=== PATIENT | female | born 2005 | race Caucasian/White ===

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

== ENCOUNTER → 2023-04-13 13:03 | Outpatient (CLI) | payer OTHER, SELFPAY ==
--- NOTE | 2023-04-13 13:04 | US_ITS ---
PROCEDURE: US TRANSVAGINAL CLINICAL INDICATION: pelvic and ovarian pain COMPARISON: No exams were available for comparison FINDINGS: UTERUS: 7cm x 3cmx 3cm with a combined endometrial thickness of 7.1mm. The uterus is anteverted. LEFT OVARY: 5cmxx2.3cm with a volume of .The left ovary has a polycystic appearance with atypical ring of pearls. RIGHT OVARY: 5cmx 5xnu3uv with a volume of 16.8ml. The right ovary is polycystic with atypical renal pearls. Both ovaries are seen and appear normal. Polycystic appearance. Doppler flow to both ovaries are seen. There is no fluid in the cul-de-sac. IMPRESSION: 1. Anteverted uterus with a normal appearing endometrium. 2. Both ovaries have a polycystic appearance with the typical ring of pearls. 3. There is no fluid in the cul-de-sac. Dictated by: Mata Koch MD 04/15/2023 12:29 Mata Koch MD in OV 04/15/2023 12:29
== END ==
LOC: RAD 13:04
PROVIDERS: PCP Family Medicine; Visit Provider Obstetrics & Gynecology
DX: N94.89 Other specified conditions associated with female genital organs and menstrual cycle (principal); R10.2 Pelvic and perineal pain
CPT/HCPCS: 76830

== ENCOUNTER 2024-02-03 19:39 | Emergency (ER) | payer OTHER, SELFPAY ==
--- NOTE | 2024-02-03 19:47 | ED_ITS ---
<Statement entered by Brett Smith MD - 02/03/24 23:39> I was consulted by the VEL, and we discussed the complexity of the problems being addressed. I approved the treatment and management plan for this patient's care in the emergency department, thus performing a substantive portion of the medical decision making. Brett Smith MD Patient has a past medical history of hidradenitis suppurativa was prescribed doxycycline for which she is having a mild allergic reaction. No criteria for anaphylaxis met. Patient was given steroids and Benadryl in the emergency department and observed with no progressive symptoms and is appropriate for outpatient management at this time and had antibiotics converted to Bactrim. Given history of hidradenitis suppurativa I&D was considered but will be deferred. Discharge Plan Disposition Patient Disposition: Home, Self-Care Condition: Good Prescriptions Prescriptions: New prednisone 50 mg tablet 50 mg PO DAILY 3 Days Qty: 3 0RF sulfamethoxazole-trimethoprim [Bactrim DS] 800-160 mg tablet 1 tab PO BID Qty: 20 0RF ondansetron 4 mg tablet,disintegrating 4 mg PO Q4H PRN (Reason: nausea and vomiting) Qty: 10 0RF Rx Instructions: give 1st dose 30min before emetogenic chemo No Action norgestimate-ethinyl estradiol [Sprintec (28)] 0.25-35 mg-mcg tablet 1 tab PO DAILY Qty: 28 11RF Referrals Follow up/Referrals: Donald Alanis MD [Primary Care Provider] - See instructions Activity Restrictions/Add. Instructions Additional Instructions/Restrictions: Continue steroids till they are gone. Continue antibiotics till they are gone. Follow-up with your tiltrotor crew chief as scheduled. Return to the ER for any worsening shortness of breath, swelling, or difficulty breathing Clinical Impressions Clinical Impression: Allergic drug reaction Qualifiers: Encounter type: initial encounter Qualified Code(s): T78.40XA - Allergy, unspecified, initial encounter Discharge ED Provider: Brett Smith General Adult HPI General Chief complaint: Allergic Reaction Stated complaint: took medication and she is having a reaction Time Seen by Provider: 02/03/24 19:47 History of Present Illness HPI narrative: Patient presents for evaluation of nausea itching and swelling. Patient has a history of hidradenitis suppurativa and was started on doxycycline by her tiltrotor crew chief. Patient took 1 dose took a shower and when she got out of the shower she immediately had nausea then vomiting. Patient also reports that her eyes are itching and they feel like they are swelling. She denies chest pain shortness of breath fever chills hemoptysis hematochezia melena hematemesis. Related Data Previous Rx's Medication Instructions Recorded norgestimate 0.25 mg-ethinyl 1 tab PO DAILY #28 tabs 04/10/23 estradiol 35 mcg tablet (Sprintec (28)) ondansetron 4 mg disintegrating 4 mg PO Q4H PRN nausea and 02/03/24 tablet vomiting #10 tabs prednisone 50 mg tablet 50 mg PO DAILY 3 days #3 tabs 02/03/24 sulfamethoxazole 800 1 tab PO BID #20 tabs 02/03/24 mg-trimethoprim 160 mg tablet (Bactrim DS) Allergies Allergy/AdvReac Type Severity Reaction Status Date / Time No Known Allergies Allergy Verified 04/10/23 14:44 [facility] Disclaimer: The information contained in this section may have been updated after the patient was seen, as this information can be updated by other users. Surgical History (Updated 04/10/23 @ 14:45 by HERMAN Espinal) No history of previous surgery Social History (Updated 04/10/23 @ 14:48 by HERMAN Espinal) Smoking Status: Unknown if ever smoked alcohol intake: never substance use type: denies use current occupational status: employed Travel in the last 8 weeks: None household members: family housing: house current occupation: [employer], [employer] ROS Obtained: Yes Systems reviewed as appropriate & no additional complaints except as documented Physical Exam General General appearance: alert and in no apparent distress Head Head exam: atraumatic and normal inspection Eye Eye exam: Present normal appearance, PERRL, EOMI and other (I do not appreciate any facial edema) ENT ENT exam: Present normal exam, normal oropharynx, mucous membranes moist and other (I do not appreciate any perioral edema, or any oropharyngeal, mucositis.) Neck Neck exam: Present normal inspection and trachea midline Chest Chest inspection: Present normal inspection and symmetric chest wall rise Respiratory Respiratory exam: Present normal lung sounds bilaterally and stridor; Absent respiratory distress, wheezes or accessory muscle use Cardiovascular Cardiovascular exam: Present regular rate, normal rhythm, normal heart sounds, +S1 and +S2 Abdominal Exam Abdominal exam: Present soft; Absent tenderness Extremities Exam Extremities exam: Present normal inspection and full ROM Neurological Exam Neurological exam: Present alert and oriented X3; Absent CN II-XII intact Psychiatric Psychiatric exam: Present normal affect and normal mood Skin Skin exam: Present warm, dry and normal color Lymphatic Lymphatic Findings: no adenopathy Medical Decision Making Medical Records Medical records reviewed: Yes I reviewed the patient's medical records. Edwar Inquiry Pt receiving controlled substance: No Vital Signs: 02/03/24 19:49 02/03/24 20:01 Temperature 97.9 F Temperature Source Oral Pulse Rate 92 H Pulse Rate [Right Brachial] 94 H Respiratory Rate 16 20 Blood Pressure 118/81 Blood Pressure [Right Arm] 131/84 Blood Pressure Mean 90 Blood Pressure Mean [Right Arm] 99 Blood Pressure Source [Right Arm] Automatic Cuff Blood Pressure Position [Right Arm] Sitting 02 Sat by Pulse Oximetry 99 100 Oxygen Delivery Method Room Air Room Air Orders (Tests/Meds): ED MEDICATIONS Discontinued Medications Generic Name Dose Route Start Last Admin Trade Name Nadege PRN Reason Stop Dose Admin Diphenhydramine HCl 50 mg 02/03/24 19:51 02/03/24 20:10 Diphenhydramine 50mg/Ml Vial IV 02/03/24 19:52 Not Given ONCE ONE Diphenhydramine HCl 50 mg 02/03/24 20:06 02/03/24 20:08 Diphenhydramine 50mg Capsule PO 02/03/24 20:07 50 mg ONCE ONE Administration Lactated Ringer's 1,000 mls @ 999 mls/hr 02/03/24 19:51 02/03/24 20:10 Lactated Ringer's 1000 Ml Bag IV 02/03/24 20:51 Not Given .Q1H1M ONE Ondansetron HCl 4 mg 02/03/24 19:51 02/03/24 20:07 Ondansetron 4mg Odt SL 02/03/24 19:52 4 mg ONCE ONE Administration Prednisone 50 mg 02/03/24 20:13 02/03/24 20:39 Prednisone 20mg Tab 0.5 mg/kg (50 mg) 02/03/24 20:14 50 mg PO Administration ONCE ONE Medical Decision Narrative: In summary patient is a 18-year-old female who presents to the emergency department for evaluation of nausea, subjective orbital itching and edema. Patient is hemodynamically stable upon arrival, febrile. Physical exam is unremarkable for any wheezing airway compromise visible edema or cutaneous signs of drug reaction. Patient does have an area of hidradenitis suppurativa in the right inguinal/inner thigh of the right lower extremity. Differential diagnosis includes allergic drug reaction versus GI upset due to drug versus anaphylaxis. Initial interventions include Benadryl Zofran prednisone. Upon repeat evaluation reports improved itching has had no progression of symptoms including continue clear breath sounds. Given this appropriate for discharge with prescription for prednisone and a new prescription for Bactrim. Patient to follow-up with tiltrotor crew chief scheduled return to ER for any worsening signs of shortness of breath swelling itching difficulty breathing. Critical Care Critical Care Time Critical Care Time: No
[2024-02-03 19:49] VITALS: BP 131/84; PULSE 94; RESP 16; TEMP 36.6; O2SAT 99; BMI 36.6
[2024-02-03 20:01] VITALS: BP 118/81; PULSE 92; RESP 20; O2SAT 100
[2024-02-03] MEDS: ONDANSETRON 4MG ODT 4 MG SL (20:07)
[2024-02-03] MEDS: diphenhydrAMINE 50MG CAPSULE 50 MG PO (20:08)
[2024-02-03] MEDS: predniSONE 20MG TAB 50 MG PO (20:39)
[2024-02-03 21:11] VITALS: BP 108/69; PULSE 79; RESP 15; TEMP 36.9; O2SAT 96
== END 2024-02-03 21:13 | disposition home or self-care (01) ==
PROVIDERS: Emergency Provider Emergency Medicine; PCP Family Medicine
DX: R11.2 Nausea with vomiting, unspecified (principal); T78.40XA Allergy, unspecified, initial encounter
CPT/HCPCS: 96361; 96374; 99284

== ENCOUNTER 2025-08-30 21:03 | Emergency (ER) | payer OTHER, SELFPAY ==
--- NOTE | 2025-08-30 21:16 | HMH.EDGENADL ---
Discharge Plan Disposition Patient Disposition: Home, Self-Care Condition: Good Prescriptions Prescriptions: No Action norgestimate-ethinyl estradiol [Sprintec (28)] 0.25-35 mg-mcg tablet 1 tab PO DAILY Qty: 28 11RF prednisone 50 mg tablet 50 mg PO DAILY 3 Days Qty: 3 0RF sulfamethoxazole-trimethoprim [Bactrim DS] 800-160 mg tablet 1 tab PO BID Qty: 20 0RF ondansetron 4 mg tablet,disintegrating 4 mg PO Q4H PRN (Reason: nausea and vomiting) Qty: 10 0RF Rx Instructions: give 1st dose 30min before emetogenic chemo Referrals Follow up/Referrals: Donald Alanis MD [Primary Care Provider, Medical] - See instructions Activity Restrictions/Add. Instructions Additional Instructions/Restrictions: Please follow-up labs with [facility]. 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 Patient was stuck on the left index finger with a straight stick needle that had been used to attempt to access the patient's pain but had not been successful in getting blood yet. This happened just prior to check-in, and the area has already been washed thoroughly with soap and water. the patient that she was trying to stick is relatively low risk with negative HIV and hepatitis testing as recent as 1 year ago. Che otherwise has no concerns or complaints reported at this time. Related Data Previous Rx's ?Medication ?Instructions ?Recorded norgestimate 0.25 mg-ethinyl 1 tab PO DAILY #28 tabs 04/10/23 estradiol 0.035 mg tablet (Sprintec (28)) ondansetron 4 mg disintegrating 4 mg PO Q4H PRN nausea and 02/03/24 tablet vomiting #10 tabs prednisone 50 mg tablet 50 mg PO DAILY 3 days #3 tabs 02/03/24 sulfamethoxazole 800 1 tab PO BID #20 tabs 02/03/24 mg-trimethoprim 160 mg tablet (Bactrim DS) Allergies Allergy/AdvReac Type Severity Reaction Status Date / Time No Known Allergies Allergy Verified 04/10/23 14:44 [facility] Disclaimer: The information contained in this section may have been updated after the patient was seen, as this information can be updated by other users. Surgical History No history of previous surgery Social History Smoking Status: Unknown if ever smoked alcohol intake: never substance use type: denies use current occupational status: employed Travel in the last 8 weeks?: None household members: family housing: house current occupation: [employer] Have you lived/traveled outside in past 30 days?: No Contact w/someone who lives/traveled outside [place] past 30 days?: No Exposure to someone with infectious disease in past 14 days?: No Do you have a fever (greater than 100.4 F or 38 C)?: No Have you tested positive for COVID-19?: No Exposed to someone with COVID-19 in past 14 days?: No Do you have a sore throat?: No Do you have a cough?: No Do you have any weakness?: No Do you have any diarrhea?: No Are you experiencing any unusual bleeding?: No Do you have any muscle aches/pain?: No Do you have any abdominal pain?: No Are you experiencing loss of taste or smell?: No Other Medical History Have you received the Flu Vaccine for this season: No Have you received the Pneumonia Vaccine: No ROS Obtained: Yes All systems reviewed & no additional complaints except as documented Physical Exam General General appearance: alert and in no apparent distress Head Head exam: atraumatic and normocephalic Eye Eye exam: Present normal appearance, PERRL and EOMI ENT ENT exam: Present normal exam, normal oropharynx, mucous membranes moist and normal external ear exam Neck Neck exam: Present normal inspection, full ROM and trachea midline; Absent tenderness Chest Chest inspection: Present normal inspection and symmetric chest wall rise; Absent tenderness Respiratory Respiratory exam: Present normal lung sounds bilaterally; Absent respiratory distress, wheezes, stridor or accessory muscle use Cardiovascular Cardiovascular exam: Present regular rate and normal rhythm Abdominal Exam Abdominal exam: Present soft; Absent distention, tenderness or guarding Extremities Exam Extremities exam: Present full ROM, normal capillary refill and other (Pinpoint needle prick to the left index finger); Absent tenderness or edema Back Exam Back exam: Present normal inspection and full ROM; Absent tenderness Neurological Exam Neurological exam: Present alert, oriented X3, CN II-XII intact and normal gait; Absent motor sensory deficit Psychiatric Psychiatric exam: Present normal affect and normal mood Skin Skin exam: Present warm and dry Medical Decision Making Medical Records Medical records reviewed: Yes I reviewed the patient's medical records. Screening: Per USPSTF and CDC recommendations, given the prevalence of disease in our region, it is our hospital?s policy to screen for HIV and viral Hepatitis for all patients aged 18 and over and those with ongoing risk factors. Edwar Inquiry Pt receiving controlled substance: No Vital Signs: 08/30/25 21:17 08/30/25 22:17 Temperature 98.3 F 98.3 F Temperature Source Oral Oral Pulse Rate 105 H Respiratory Rate 18 16 Blood Pressure 128/78 02 Sat by Pulse Oximetry 98 Oxygen Delivery Method Room Air Room Air Lab Data Lab results reviewed: Yes I reviewed the patient's lab results. Lab Results 08/30/25 21:50: PT 10.8, INR 0.97, APTT 28.1, Sodium 141, Potassium 3.9, Chloride 106, Carbon Dioxide 24, Anion Gap 14.9, BUN 13, Creatinine 0.80, Estimated Creat Clear 178, Estimated GFR 91, Est GFR ( Amer) 110, Glucose 91, Calcium 9.4, Total Bilirubin 0.6, AST 54 H, ALT 33, Alkaline Phosphatase 88, Total Protein 8.4 H, Albumin 5.4 H, Globulin 3.0, Albumin/Globulin Ratio 1.8, Urine Opiates Screen Negative, Urine Methadone Screen Negative, Ur Barbituates Screen Negative, Ur Phencyclidine Scrn Negative, Ur Amphetamines Screen Negative, U Benzodiazepines Scrn Negative, Urine Cocaine Screen Negative, U Marijuana (THC) Screen Negative, HCV Ab JAIDA w/Rflx PCR Qn Negative, HIV Ag/Ab Combo Qual Negative 08/30/25 21:50 Orders (Tests/Meds): ORDERS Category Date Time Status Activated Partial Thrombo Time Stat Lab 08/30/25 21:50 Completed Complete Blood Count Auto Diff Stat Lab 08/30/25 21:50 Received Comprehensive Metabolic Panel Stat Lab 08/30/25 21:50 Completed HIV Combo Stat Lab 08/30/25 21:50 Completed Hepatitis B Surf Ab Quant Stat Lab 08/30/25 21:50 Received Hepatitis B surface antigen screen [HBsAg Screen] Stat Lab 08/30/25 21:50 Received Hepatitis C Ab Qual. W/ RFX Stat Lab 08/30/25 21:50 Completed Prothrombin Time INR Stat Lab 08/30/25 21:50 Completed UDS [Drug Screen,Urine] Stat Lab 08/30/25 21:50 Completed Medical Decision Narrative: In summary, this patient is a 19-year-old female presenting to the Emergency Department for evaluation of needlestick injury. Differential diagnoses considered include but are not limited to blood-borne pathogen exposure, needlestick. Ruling out the most morbid conditions drove assessment. Per our hospital employee protocols, initial labs for the patient were obtained including CBC, CMP, coags, hepatitis B testing, HCV testing, HIV testing. Patient's labs were largely pending at her time of requested discharge. Her CMP was reassuring with exception of very mildly elevated AST. Coags are normal. CBC is not yet resulted. Her hepatitis and HIV testing was pending at time of discharge. The other involved alliance party also had labs pending, I did follow-up in his preliminary HIV, hepatitis C testing were both negative. Che and I discussed HIV prophylaxis, but she would like to defer this at this time given patient's negative HIV status and low risk stick. Given this, I feel that she is appropriate for discharge with instructions to continue follow-up with employee health. Strict return precautions given Critical Care Critical Care Time Critical Care Time: No
[2025-08-30 21:17] VITALS: RESP 18; TEMP 36.8; O2SAT 98; BMI 37.0
--- OUTSIDE RECORDS SUMMARY | 2025-08-30 21:32 | XMS_ITS | Data Portability ---
Author Organization [facility],, Main Office Address [address] [place] [address] Assessment No assessment recorded. Plan of Treatment Reminders Order Date Submit Date Provider Last Modified By Organization Details Last Modified Time Details Appointments None recorded. Lab urinalysis, dipstick 2024 025 [facility] Main Office, [address], [place], [address], 5 15:19:27 test, urine 2024 025 [facility] Main Office, [address], [place], [address], 5 15:19:27 Referral None recorded. Procedures None recorded. Surgeries None recorded. Imaging None recorded. Medication Orders drospirenon e 3 mg-ethinyl estradiol 0.02 mg tablet 2024 025 [facility] #[id number], [address], [id number], 5 10:10:37 Patient TargetsNo targets recorded. Patient InstructionsNo instructions recorded. Reason for Referral None Reported. Results Created Date Observation Date Name Description Value Unit Range Abnormal Flag Note LastModifiedBy Organization Detail LastModifiedTime 03/03/2003/04/2025 PROLA CTIN prolactin 13.30 NG/mL 4.79-2 3.30 Not Available [facility] ([facility]) [address], [place], [address], 03/04/2025 05:52:50 03/03/20 25 03/04/2025 LUTEI NIZIN G HORMO NE luteinizing hormone 13.40 mIU/m L LH Refer ence Range Men: 1.7 - 8.6 Women : Folli cular phase 2.4 - 12.6 Ovula tion phase 14.0 - 95.6 Lutea l phase 1.0 - 11.4 Postm enopa use 7.7 - 58.5 Not Available [facility] ([facility]) [address] [place] [address] [address], [place], [address], 03/04/2025 05:52:51 03/03/20 25 03/04/2025 FSH FSH 4.96 mIU/m L FSH Refer ence Range Men: 1.5 - 12.4 Women : Folli cular phase 3.5 - 12.5 Ovula tion phase 4.7 - 21.5 Lutea l phase 1.7 - 7.7 Postm enopa use 25.8 - 134.8 Not Available [facility] ([facility]) [address] [place] [address] [address], [place], [address], 03/04/2025 05:52:51 03/03/20 25 03/04/2025 TSH TSH 4.15 mU/L 0.43-5 .25 Not Available [facility]) [address] [place] [address] [address], [place], [address], 03/04/2025 05:52:52 03/03/20 25 03/04/2025 THYRO XINE FREE (FREE T4) thyroxine free (free T4) 1.32 NG/dL 0.86-1 .76 Not Available [facility] ([facility]) [address] [place] [address] [address], [place], [address], 03/04/2025 05:52:52 03/03/20 25 03/04/2025 BETA- HCG, SERUM , (NANCY TITAT TANYA) beta-HCG, serum, (quantitativ e) <1 mIU/m L hCG Refer ence Range s: Male: <0.2- 2.6 mIU/m L Nonpr egnan t Femal e: <0.2- 5 mIU/m L Post- menop ausal Femal e: <0.2- 8.3 mIU/m L Annie l Pregn giovanna hCG Range s: Week 3: 5.8-7 1.2 mIU/m L Week 4: 9.5-7 50 mIU/m L Week 5: 217-7 138 mIU/m L Week 6: 158-3 1795 mIU/m L Week 7: 3697- 38230 3 mIU/m L Week 8: [address] -[address] 71 mIU/m L Week 9: 59[address] -[address] 10 mIU/m L Week 10: 276[address] -1869 77 mIU/m L Week 12: 24287 -2106 12 mIU/m L Week 14: 10136 -6253 0 mIU/m L Week 15: [address] -[address] 1 mIU/m L Week 16: 9040- 68441 mIU/m L Week 17: 8175- 73111 mIU/m L Week 18: 8099- 04875 mIU/m L Not Available [facility] ([facility]) [address] [facility] [address], [place], [address], 03/04/2025 05:52:53 03/03/20 25 03/03/2025 pregn giovanna test, urine HCG negati ve Not Available Main Office [address], [place], [address], 03/03/2025 14:39:55 03/03/20 25 03/03/2025 urina lysis , dipst ick Leukocytes - Not Available Main Of fice [address], [place], [address], 03/03/2025 14:39:52 03/03/20 25 03/03/2025 urina lysis , dipst ick Nitrite negati ve Not Available Main Office [address], [place], [address], 03/03/2025 14:39:52 03/03/20 25 03/03/2025 urina lysis , dipst ick Urobilinogen - Not Available Main Office [address], [place], [address], 03/03/2025 14:39:52 03/03/20 25 03/03/2025 urina lysis , dipst ick Protein - Not Available Main Offic e [address], [place], [address], 03/03/2025 14:39:52 03/03/20 25 03/03/2025 urina lysis , dipst ick pH 6.0 Not Available Main Offic e [address], [place], [address], 03/03/2025 14:39:52 03/03/20 25 03/03/2025 urina lysis , dipst ick Specific [place] 1.030 Not Available Main O ffice [address], [place], [address], 03/03/2025 14:39:52 03/03/20 25 03/03/2025 urina lysis , dipst ick Ketone - Not Available Main Offic e [address], [place], [address], 03/03/2025 14:39:52 03/03/20 25 03/03/2025 urina lysis , dipst ick Bilirubin - Not Available Main Off ice [address], [place], [address], 03/03/2025 14:39:52 Result Notes None recorded. Medical Equipment None Reported. Allergies Allergen ID Allergen Name Allergen Category Reaction Reaction Severity Criticality Documentation Date Start Date Code Code System Note Provider Name and Address Organization Details Recorded Time [facility] Not [facility] rash Not available Not available 03/03/2025 3640 RxNorm Jennifer Barillas [facility], 14:29:39 Medications Name Sig Start Date Stop Date Status Note LastModified by Organization Details LastModified Time phentermine 15 mg capsule TAKE 1 CAPSULE BY MOUTH EVERY MORNING 03/03 completed Not Available Not Available Not Available Tamie 0.25 mg-0.035 mg tablet TAKE 1 TABLET BY MOUTH DAILY active Not Available Not Available No t Available Jasmiel (28) 3 mg-0.02 mg tablet TAKE 1 TABLET BY MOUTH EVERY DAY 04/08 completed Not Available Not Available Not Available Vitals Date Recorded Body height Body mass index (BMI) Body weight Heart rate Body temperature Systolic And Diastolic Provider Name and Address Organization Details Last Updated DateTime 165.1 cm 43.1 kg/m2 327860. 71 g 76 /min 97.2 [degF] 110/75 mm[Hg] Jennifer Barillas [facility], 14:43:49 Social History Question Answer Notes LastModified by Organizat ion Details LastModified Time Tobacco Smoking Status Never Smoker Jennifer Barillas [facility], 03/03/2025 14:47:07 Do You Have An Advance Directive? No [email or web address] Information n ot available 03/03/2025 Are You Currently Sexually Active With Anyone Who Has Traveled (within The Last 12 Weeks) To A Zika-affected Area? No [email or web address] Information not available 03/03/2025 Do You Wear A Helmet When Biking? Yes [email or web address] Information not available 03/03/2025 Are You Blind Or Do You Have Difficulty Seeing? No [email or web address] Information n ot available 03/03/2025 Is Blood Transfusion Acceptable In An Emergency? Yes [email or web address] Information not available 03/03/2025 What Is Your Level Of Caffeine Consumption? Heavy Information not available 03/03/2025 What Type Of Tugboat Captain Do You Use? None [email or web address] Information not available 03/03/2025 In The 14 Days Before Symptom Onset, Have You Had Close Contact With A Laboratory-confirm ed COVID-19 While That Case Was Ill? No [email or web address] Information n ot available 03/03/2025 In The 14 Days Before Symptom Onset, Have You Had Close Contact With A Person Who Is Under Investigation For COVID-19 While That Person Was Ill? No Information not available 03/03/2025 Have You Been To An Area Known To Be High Risk For COVID-19? No [email or web address] Information not available 03/03/2025 Are You Deaf Or Do You Have Serious Difficulty Hearing? No [email or web address] Information not available 03/03/2025 What Type Of Diet Are You Following? REGULAR Information n ot available 03/03/2025 Have You Processed Blood Or Body Fluids From An Ebola Virus Disease Patient Without Appropriate PPE? No [email or web address] Information not available 03/03/2025 Do You Reside In Or Have You Traveled To An Area Where Ebola Virus Transmission Is Active? No [email or web address] Information not available 03/03/2025 What Is The Highest Grade Or Level Of School You Have Completed Or The Highest Degree You Have Received? RC07295-1 Information not available 03/03/2025 Have There Been Any Changes To Your Family Or Social Situation? No [email or web address] Information no t available 03/03/2025 What Is The Fluoride Status Of Your Home? Unknown Information not available 03/03/2025 Are There Any Guns Present In Your Home? No Information not available 03/03/2025 Have You Recently Or Are You Planning To Travel To An Area With Zika Virus? No [email or web address] Information not available 03/03/2025 Do You Use Insect Repellent Routinely? No Information not available 03/03/2025 Do You Have A Medical Power Of Electrical Installation Inspector? No [email or web address] Information not available 03/03/2025 How Many Children Do You Have? 0 [email or web address] Information not available 03/03/2025 Do You Have Any Pets? No [email or web address] Information not available 03/03/2025 Do You Use Protection During Sex? Always [email or web address] Information not available 03/03/2025 What Is Your Relationship Status? Single Information not available 03/03/2025 Do You Use Your Seat Belt Or Car Seat Routinely? Yes Information not available 03/03/2025 Are You Sexually Active? Yes Information not available 03/03/2025 Do You Have Smoke And Carbon Monoxide Detectors In Your Home? Yes Information not available 03/03/2025 Are You Passively Exposed To Smoke? No [email or web address] Information no t available 03/03/2025 Are There Any Smokers In Your House? No [email or web address] Information not available 03/03/2025 Do You Use Sunscreen Routinely? Yes [email or web address] Information not available 03/03/2025 Has Tobacco Cessation Counseling Been Provided? No [email or web address] Information not available 03/03/2025 Do You Have Difficulty Walking Or Climbing Stairs? No Information not available 03/03/2025 Sex: Female Functional Status Question Answer Note LastModified by Organizat ion Details LastModified Time Do you use any illicit or recreational drugs? No [email or web address] Information not available 03/03/2025 Do you or have you ever used any other forms of tobacco or nicotine? No [email or web address] Information not available 03/03/2025 What is your level of alcohol consumption? None Information not available 03/03/2025 Are you currently employed? Yes [email or web address] Information not available 03/03/2025 Do you have transportation difficulties? No Information not available 03/03/2025 Are you able to walk independently without assistance or assistive devices? [email or web address] Information not available 03/03/2025 Do you have difficulty doing errands alone? No [email or web address] Information not available 03/03/2025 Are you able to care for yourself independently? Yes Information not available 03/03/2025 What is your occupation? [employer] Information not available 03/03/2025 Do you have difficulty dressing, bathing, grooming, or toileting? No Information not available 03/03/2025 What is your exercise level? Moderate [email or web address] Information not available 03/03/2025 Mental Status Question Answer Note LastModified by Organizat ion Details LastModified Time Do you feel stressed (tense, restless, nervous, or anxious, or unable to sleep at night)? [id number] [email or web address] Information not available 03/03/2025 Do you have difficulty concentrating, remembering or making decisions? No Information no t available 03/03/2025 Family History Relationship Description Onset Age of this Age Resolved Age Notes LastModified by Organization Details LastModified Time Maternal Grandmother Arthritis Not available 14:30:33 Paternal Grandmother Heart disease Not available 2024 14:31:41 Paternal Grandmother Hypertensive disorder [email or web address] Not available 2024 14:32:19 Paternal Grandfather Heart disease [email or web address] Not available 2024 14:31:41 Paternal Grandfather Hypertensive disorder [email or web address] Not available 2024 14:32:19 Paternal Grandfather Alcohol use disorder [email or web address] Not available 2024 14:32:51 Paternal Grandfather Diabetes mellitus [email or web address] Not available 2024 14:33:17 Father Heart disease Not available 2024 14:31:41 Father Hypertensive disorder [email or web address] Not available 2024 14:32:19 Father Diabetes mellitus [email or web address] Not available 2024 14:33:17 Mother Hypertensive disorder [email or web address] Not available 2024 14:32:19 Notes:Cancer- Maternal Grand father, Paternal Grandfather, Medical History Condition Response Coronary Artery Disease N Other N Gout N Kidney Stones N Blood Diseases N Hyperthyroidism N Enlarged Prostate N Blood Transfusion N Dermatologic Disorders N Depression N COPD N Gestational Diabetes N Anxiety Disorder Y Muscle, Joint, or Bone Problems N Autoimmune disease N Obesity N Vision or Eye Problems N Arthritis N Polyps N Infertility N Mental Disorder N Cancer N Varicosities N Stroke N Neurologic/Epilepsy N Headaches N Fibromyalgia N Kidney Disease N Heart Problems N Ear or Hearing Problems N Hospitalizations N Acne N Skin Problems N Eating Disorder N MRSA exposure N Heartburn N Constipation N Art (IVF or FET) N Bladder Problems N Bleeding Disorder N Tuberculosis N AIDS/HIV N G.E.R.D N Asthma N Trauma/Violence N Hepatitis N Pulmonary Embolism N Chronic Ear Infections N Chicken Pox N Autism Spectrum Disorder (ASD) N Thrombophilias N Allergies (Food, seasonal, environmental ) N Colon Cancer N Drug/Latex Allergies/Reactions N Breast Cancer N Hypothyroidism N Lung Disease N Developmental or Behavioral Disorders N Defects or Inherited Disease N Breast Problem N Difficulty Swallowing N Hematologic disorders N Anesthesia Complications N History of STI N Deep Vein Thrombosis N Polycystic ovary syndrome N Meniere's disease N History of abnormal pap N Endometriosis N High Cholesterol N Liver Disease N Allergies/Hayfever N Kidney Problems N Thyroid Problems N GI Problems N ADD/ADHD N Anemia N Mental Illness N Psychiatric Illness N Diabetes N Ovarian Cancer N Pulmonary (TB, Asthma) N Seizures/Epilepsy N Congestive Heart Failure (CHF) N Hyperlipidemia N Eczema N Abuse/Domestic Violence N Diverticulitis N Depression/ depression N Heart Disease N Hypertension N Pre-Eclampsia N Osteoporosis N Gynecological History Statement/Question Response Flow Moderate Date of LMP 12/05/2021 On BCP's at Conception? Y STIs/STDs N HPV Vaccine Y Duration of Flow (days) 3 Age at Menarche 10 Current Control Method BCPs Sexually Active? Y Menses Monthly N Sexual Problems? N Obstetrics History GPAL:G 0 P 0 0 0 0 Past Encounters Encounter ID Performer Location Encounter Start Date Encounter Closed Date Diagnosis/Indication Diagnosis SNOMED-CT Code Diagnosis ICD10 Code Diagnosis IMO Codes Diagnosis Note [id number] Barber Pillai, Main Office [address] [place] [address] 03/03/2025 14:05:37 03/03/2025 15:37:24 Polycystic ovary syndrome 112743973 E28.2 [id number] do basic pcos labs today. schedule pap/annual . start [place]. Irregular periods 158025 07 N92.5 [id number] Female hirsutism 4514390 9 L68.0 36921 Health Concerns Section Related Observation LastModified by Organization Detai ls LastModified Time None Recorded Concern Status LastModified by Organization Details LastModified Time None Recorded Advance Directives Directive N: Payers Insurance Date Sequence Insurance Name Policy Number Policy Harper Covered Member ID Harper Member ID Guarantor Name 03/16/2025 1 [employer] [id number] Che Mckinney [id number] Che Mckinney Notes Date Note Type Note Provider Name and Address Organization Details Recorded Time 03/03/2025 text/html ROS as noted in the HPI CC: pcos and irregular periods. Had been diagnosed with PCOS around 2016. Is currently on OCP (Tamie 0.25/0.035) for 2 years. Her previous doctor moved. Light periods or no periods with pill but still had abnormal hair growth. No acne. Previous pills (around 4 different kinds) caused s/e from previous pills: anxiety(patch), no energy. pelvic pain, has had TV us (last year); ovarian cysts. Random pelvic pains, about every other day, mainly on one side or other, non-radiating, lasting 1-2 minutes, severe pain. starts sharp/goes to aching. Takes ibuprofen, most of the time it helps. no dyspareunia. no discharge, itching, irritationno hx of pap smear.does not wish to conceive in near future thyroid checked jul 2024 wnl.no visual changes. no pain today, just moderate bleeding today (last few days was light, and dark colored). Barber Pillai, DO [address], [place], [address], [facility], 03/16/2025 11:25:12 OBGyn Episode No OBEpisode recorded.
[2025-08-30 22:13] LABS: Amphetamine/Metha Screen,Urine Negative ng/ml (<1000); Barbiturates Screen,Urine Negative ng/ml (<200); Benzodiazepines Screen,Urine Negative ng/ml (<200); Methadone Screen,Urine Negative ng/ml (<300); Opiate Screen,Urine Negative ng/ml (<300); Phencyclidine Screen,Urine Negative ng/ml (<25)
[2025-08-30 22:17] VITALS: BP 128/78; PULSE 105; RESP 16; TEMP 36.8; O2SAT 98
[2025-08-30 22:28] LABS: Albumin Level 5.4 g/dl (3.5-5.0); Chloride 106 mmol/L (98-107); Potassium 3.9 mmoL/L (3.5-5.1); Sodium 141 mmol/L (136-145)
[2025-08-30 22:31] LABS: Alanine Aminotransferase 33 U/L (12-78); Albumin/Globulin Ratio 1.8 (1.1-1.8); Alkaline Phosphatase 88 U/L (38-126); Anion Gap 14.9 mEq/L (5-15); Aspartate Amino Transferase 54 U/L (14-36); Bilirubin,Total 0.6 mg/dl (0.2-1.3); Calcium 9.4 mg/dl (8.4-10.2); Carbon Dioxide 24 mmol/L (22.0-30.0); Globulin 3.0 g/dL (1.3-3.2); Glucose 91 mg/dl (74-100); Total Protein,Serum 8.4 g/dl (6.3-8.2)
[2025-08-30 22:36] LABS: Activated Partial Thrombo Time 28.1 seconds (22.8-30.6); Creatinine Clearance Estimated 178 mL/min (50-200); Creatinine,Serum 0.80 mg/dl (0.52-1.04); Estimated Glomerular Filt Rate 91 ml/min (>60); GFR (African American) 110 ML/MIN (>60); INR 0.97 (0.9-1.1); Prothrombin Time 10.8 seconds (10.1-12.5)
[2025-08-30 23:02] LABS: Blood Urea Nitrogen 13 mg/dl (7-17)
[2025-08-30 23:32] LABS: Hepatitis C Ab Qual. W/ RFX NEGATIVE (Negative)
[2025-08-31 00:36] LABS: Hematocrit 42.4 % (37.0-47.0); Hemoglobin 13.8 g/dL (12.2-16.2); Immature Granulocytes % 0.6 %; Mean Corpuscular HGB Conc 32.5 g/dL (31.8-35.4); Mean Corpuscular Hemoglobin 29.2 pg (27.0-31.2); Mean Corpuscular Volume 89.6 fl (81-99); Nucleated Red Blood Cells % 0 %; Platelet Count 391 K/mm3 (142-424); Red Blood Count 4.73 M/mm3 (4.20-5.40); Red Cell Distribution Width-SD 42.8 fL; White Blood Count 11.6 K/mm3 (4.8-10.8)
[2025-09-01 10:14] LABS: Hepatitis B Surface Antigen Negative (Negative)
== END 2025-08-30 22:18 | disposition home or self-care (01) ==
LOC: ER 21:30
PROVIDERS: Emergency Provider Emergency Medicine; PCP Family Medicine
DX: S61.231A Puncture wound without foreign body of left index finger without damage to nail, initial encounter (principal); W46.1XXA Contact with contaminated hypodermic needle, initial encounter
CPT/HCPCS: 80053; 80307; 85025; 85610; 85730; 86706; 86803; 87340; 87389; 99282; 99283